=== PATIENT | male | born 1960 | race Caucasian/White ===

== ENCOUNTER 2024-11-19 11:28 | Emergency (ER) | payer SELFPAY ==
[~2024-11-19] VITALS: Ht 182.8 cm; Wt 127.0 kg
[2024-11-19] MEDS ORDERED: LIPITOR20 MG PO (12:13)
[2024-11-19] MEDS ORDERED: METOPROLOL SUCC25 M2 PO (12:13)
[2024-11-19] MEDS ORDERED: ELIQUIS5 M1 PO (12:13)
[2024-11-19] MEDS ORDERED: LASIX40 MG PO (12:14)
[2024-11-19] MEDS ORDERED: POTASSIUM CHLO10 ME5 PO (12:14)
[2024-11-19 12:19] LABS: BASO % 0.4 % (0.0-1.0); EOS % 0.2 % (1.0-4.0); MEAN CELL VOLUME 94.9 fl (80.0-94.0); MEAN CORPUSCULAR HGB 32.1 pg (27.0-31.0); MEAN CORPUSCULAR HGB CONC 33.8 g/dl (33.0-37.0); MONO # 0.7 10*3/uL (0.1-1.0); MONO % 14.4 % (3.0-9.0); NEUT # 2.9 10*3/uL (2.3-7.9); NEUT % 62.4 % (47.0-73.0); PLATELET COUNT AUTOMATED 196 10*3/uL (130-400); RED BLOOD COUNT 4.95 10*6/uL (4.50-5.90); RED CELL DISTRI WIDTH 13.1 % (0-14.5); WHITE BLOOD COUNT 4.6 10*3/uL (4.8-10.8)
[2024-11-19 12:39] LABS: BUN 18 mg/dl (9-23); CHLORIDE 104 mmol/L (98-107); POTASSIUM 3.9 mmol/L (3.4-5.1)
== END 2024-11-19 15:14 | disposition home or self-care (01) ==
LOC: ED 11:28
PROVIDERS: Nurse Practitioner Family
DX: I48.91 Unspecified atrial fibrillation (principal); R60.0 Localized edema; I50.9 Heart failure, unspecified; E78.00 Pure hypercholesterolemia, unspecified

== ENCOUNTER 2024-11-28 17:30 | Emergency (ER) | payer SELFPAY ==
[~2024-11-28] VITALS: Ht 182.8 cm; Wt 124.7 kg
[~2024-11-28 17:30] MED LIST: ELIQUIS5 M1 PO; LASIX40 MG PO; LIPITOR20 MG PO; METOPROLOL SUCC25 M2 PO; POTASSIUM CHLO10 ME5 PO
[2024-11-28 18:40] LABS: BASO % 0.1 % (0.0-1.0); EOS % 0.1 % (1.0-4.0); HEMATOCRIT 46.4 % (42.0-52.0); MEAN CELL VOLUME 94.7 fl (80.0-94.0); MEAN CORPUSCULAR HGB 31.8 pg (27.0-31.0); MEAN CORPUSCULAR HGB CONC 33.6 g/dl (33.0-37.0); MEAN PLATELET VOLUME 8.4 fl (9.6-12.3); MONO # 0.7 10*3/uL (0.1-1.0); NEUT # 12.1 10*3/uL (2.3-7.9); NEUT % 88.9 % (47.0-73.0); PLATELET COUNT AUTOMATED 250 10*3/uL (130-400); WHITE BLOOD COUNT 13.6 10*3/uL (4.8-10.8)
[2024-11-28 18:58] LABS: BUN 20 mg/dl (9-23); CHLORIDE 102 mmol/L (98-107); POTASSIUM 3.8 mmol/L (3.4-5.1)
== END 2024-11-28 21:06 | disposition home or self-care (01) ==
LOC: ED 17:30
PROVIDERS: Physician Assistant Medical
DX: R07.89 Other chest pain (principal); I48.91 Unspecified atrial fibrillation; E78.5 Hyperlipidemia, unspecified; I50.9 Heart failure, unspecified; Z20.822 Contact with and (suspected) exposure to COVID-19; Z79.899 Other long term (current) drug therapy

== ENCOUNTER → 2025-06-30 | Outpatient (CLI) | payer OTHER | END | disposition home or self-care (01) | LOC: CARD 09:30 | PROVIDERS: ATTEND Family Medicine | DX: I48.91 Unspecified atrial fibrillation (principal) ==

== ENCOUNTER → 2025-08-19 | Outpatient (CLI) | payer OTHER | END | disposition home or self-care (01) | LOC: RAD 08:28 | PROVIDERS: ATTEND Family Medicine | DX: M77.32 Calcaneal spur, left foot (principal); L03.90 Cellulitis, unspecified ==

== ENCOUNTER → 2025-09-02 | Outpatient (CLI) | payer OTHER | END | disposition home or self-care (01) | LOC: US 09:03 | PROVIDERS: ATTEND Family Medicine | DX: I70.203 Unspecified atherosclerosis of native arteries of extremities, bilateral legs (principal); R23.0 Cyanosis ==